=== PATIENT | male | born 1935 | race Caucasian/White ===

== ENCOUNTER 2019-02-26 21:33 | Inpatient (IN) ==
[2019-02-26] MEDS ORDERED: KETOROLAC TROMETHAMINE 15 MG/ML VIAL IV STA (21:54)
[2019-02-26] MEDS ORDERED: SODIUM CHLORIDE 0.9% 1000ML 250 ML IV ONE (21:54)
[2019-02-26] MEDS ORDERED: MoRPHine SULFATE 4 MG/ML 1 ML CARP\\VIAL IV STA (21:54)
[2019-02-26] MEDS ORDERED: ONDANSETRON INJ 2 MG/ML 2 ML VIAL IV STA (21:54)
[2019-02-26] MEDS ORDERED: SODIUM CHLORIDE 0.9% 500 ML IV SCH (22:00)
[2019-02-26 22:28] LABS: Hematocrit (blood only) 45.5 % (42-52); Hemoglobin 15.8 g/dL (14.0-18.0); Mean Corpuscular Hemoglobin 32.7 pg (25-34); Mean Corpuscular Hgb Conc 34.7 g/dL (32-36); Mean Corpuscular Volume 94.2 fL (80-100); Mean Platelet Volume 10.2 fL (7.4-10.4); Platelet Count 147 K/uL (130-400); RDW Coefficient of Variation 13.6 % (11.5-14.5); RDW Standard Deviation 46.6 fL (36.4-46.3); Red Blood Count 4.83 M/uL (4.7-6.1); White Blood Count 7.55 K/uL (4.8-10.8)
[2019-02-26 22:48] LABS: Albumin Level 4.2 gm/dl (3.4-5.0); BUN Creatinine Ratio 15.3 (10-20); Calcium 9.6 mg/dl (8.5-10.1); Creatinine Clr Calc Pharmacy 41.1 ml/min; Est GFR (African American) 55.3; Est GFR (Non-African American) 47.7; Potassium 3.9 mmol/L (3.5-5.1)
[2019-02-26] MEDS ORDERED: HYDROmorphone INJ 0.5 MG/0.5 ML SYR IV STA (22:50)
[2019-02-26 22:52] LABS: Albumin Globulin Ratio 1.1 (0.9-2); Bilirubin,Total 0.4 mg/dl (0.2-1); Globulin 3.7 gm/dl (2.5-4.0); Total Protein 7.9 gm/dl (6.4-8.2)
--- NOTE | 2019-02-26 22:53 | CT Scan Report ---
CT SCAN OF THE ABDOMEN AND PELVIS WITHOUT CONTRAST CLINICAL HISTORY: right flank pain COMPARISON STUDY: No previous studies for comparison. TECHNIQUE: CT scan of the abdomen and pelvis was performed from the lung bases to the proximal femurs . Images are reviewed in the axial, sagittal, and coronal planes. IV contrast was not administered fo r this examination. A dose lowering technique was utilized adhering to the principles of ALARA. CT DOSE: 331.62 mGy.cm FINDINGS: Lower chest: There is moderate respiratory motion artifact. There are no significant pleural effusion s. There are coronary artery calcifications. Liver: The unenhanced liver is normal in size, contour, and attenuation. There is no intrahepatic thao iary ductal dilatation. Gallbladder: Unremarkable. Spleen: Normal in size and attenuation. Pancreas: Unremarkable. Adrenal glands: Unremarkable. Kidneys: There is right-sided hydronephrosis and proximal hydroureter. There is an obstructing 5 mm p roximal right ureteral calculus Bowel: There are no transition zones indicate bowel obstruction. There are no findings to indicate [place] diverticulitis. There are no findings to indicate acute appendicitis. Peritoneum: There is no intraperitoneal free air or abdominal ascites. There is a small fat-containin g umbilical hernia Vasculature: The abdominal aorta is normal in course and caliber. Adenopathy: None. Pelvic viscera: The prostate is enlarged. Skeletal structures: No destructive osseous lesions are seen. The study is mildly degraded due to motion artifact. IMPRESSION: 1. No evidence of bowel obstruction. No evidence of free air 2. Obstructing 5 mm proximal right ureteral calculus at the L3-4 level. Electronically signed by: Wilton Carranza M.D. 02/26/2019 10:51 PM
[2019-02-26 23:41] LABS: Appearance Urine Clear (Clear); Bacteria Urine Automated Negative (Negative); Bilirubin Urine Negative (Negative); Blood Urine 1+ (Negative); Color Urine Yellow; Glucose Urine UA Negative (Negative); Ketones Urine 2+ (Negative); Leukocyte Esterase Urine Negative (Negative); Nitrite Urine Negative (Negative); Specific Gravity Urine 1.016 (1.000-1.030); Urobilinogen Urine Negative (Negative); pH Urine 7.5 (4.5-7.5)
[2019-02-26 23:46] LABS: Protein Urine Negative (Negative); Sulfosalicylic Acid Urine Negative (Negative)
[2019-02-27] MEDS ORDERED: PROMETHAZINE HCL 12.5 MG in SODIUM CHLORIDE 0.9% 50 ML IV STA (00:07)
[2019-02-27] MEDS ORDERED: PROMETHAZINE 12.5 MG/50.5 ML NSS IV ONE (00:19)
--- NOTE | 2019-02-27 00:26 | Emergency Department Note ---
History of Present Illness General Chief complaint: Kidney Stone Stated complaint: KIDNEY STONE History of Present Illness Maximum Pain Intensity: 10 This 83-year-old presents to the ER complaining of severe flank pain with nausea and vomiting Location: Right flank Quality: Achy Severity: Severe Duration: Past few days Timing: Started few days ago Context: Patient went to urgent care and was told he had a kidney stone and told to drink cranberry juice Modifying factors: better with nothing; worse with nothing Patient saw urology the other day, Dr. Carranza, and was placed on Flomax. Patient denies chest pain, dyspnea, fevers, testicular pain, penile pain, urinary symptoms. Home Medications Home Medications Medication Instructions Recorded Confirmed Type tamsulosin 0.4 mg capsule 0.4 mg PO DAILY #30 cap 02/17/19 02/26/19 Rx atorvastatin [Lipitor] 10 mg PO HS 02/26/19 02/26/19 History metoprolol succinate 25 mg PO DAILY 02/26/19 02/26/19 History aspirin [Aspir-Low] 81 mg PO DAILY 02/27/19 02/27/19 History Allergies Allergy/AdvReac Type Severity Reaction Status Date / Time No Known Allergies Allergy Verified 02/26/19 22:33 Past Med/Surg History Medical History Skin cancer Surgical History Previous back surgery Family History Brother Kidney disease Social History Preferred Language: Mexican Communication Ability: Effective Director [employer] Required: No Beliefs That Will Affect Care: None marital status: Current Living Situation: Spouse current occupational status: retired Feels Safe at Home: Yes Smoking Status: Former smoker Do You Dip or Chew Tobacco: No ; Hx Alcohol Use: Yes Alcohol type: beer Hx Substance Use: No Review of Systems A total of 10 systems reviewed and were otherwise negative Physical Exam Vital Signs Vital Signs - 24 hr 02/26/19 21:37 02/26/19 22:43 Temperature 36.5 C Temperature Source Oral Pulse Rate 94 H Pulse Rate [Left Finger] 86 Respiratory Rate 18 18 Blood Pressure 187/92 H Blood Pressure [Right Arm] 164/89 H Blood Pressure Mean 123 Blood Pressure Mean [Right Arm] 114 Blood Pressure Position [Right Arm] Sitting Pulse Oximetry 96 97 Oxygen Delivery Method Room Air Room Air Sepsis Recent Fever Within 48 Hours No Sepsis New/Unexplained Change in Mental Status No Sepsis Action Taken by Nursing No Action Required VITALS: Vitals are noted on the nurse's note and reviewed by myself. Vital signs stable. GENERAL: Pleasant male who appears in pain vomiting, in no acute distress, nondiaphoretic, well-developed well-nourished. SKIN: Capillary reflex less than 2 seconds. HEENT: Normocephalic. PERRLA. EOMI. Nares patent. Mucous membranes moist. Neck is supple without nuchal rigidity. HEART: Regular rate and rhythm LUNGS: Clear to auscultation bilaterally without wheezes, rales or rhonchi. No retractions or accessory muscle use. ABDOMEN: Positive bowel sounds x 4. Normal tympanic percussion. Soft, nontender, without masses or organomegaly. Umana sign negative. No guarding or rebound tenderness. MUSCULOSKELETAL: No gross musculoskeletal defects. NEURO: Patient was alert and oriented to person place and time. Normal sensation to light and sharp touch. No focal neurological deficits. Course Administered Medications Discontinued Medications Hydromorphone HCl (Dilaudid) 0.5 mg IV NOW STA Stop: 02/26/19 22:51 Last Admin: 02/26/19 22:54 Dose: 0.5 mg Documented by: [id number] Sodium Chloride (Nss 1000ml) 250 mls @ 999 mls/hr IV .Q16M ONE Stop: 02/26/19 22:09 Last Admin: 02/26/19 22:10 Dose: 999 mls/hr Documented by: [id number] Sodium Chloride (Nss) 500 mls @ 125 mls/hr IV .Q4H ILEANA Stop: 03/28/19 21:59 Last Admin: 02/26/19 22:10 Dose: 125 mls/hr Documented by: [id number] Promethazine HCl 12.5 mg/ (Sodium Chloride) 50.5 mls @ 202 mls/hr IV NOW STA Stop: 02/27/19 00:21 Last Admin: 02/27/19 00:24 Dose: 202 mls/hr Documented by: [id number] Ketorolac Tromethamine (Toradol) 10 mg IV ONE STA Stop: 02/26/19 21:55 Last Admin: 02/26/19 22:07 Dose: 10 mg Documented by: [id number] Morphine Sulfate (Morphine Sulfate) 4 mg IV NOW STA Stop: 02/26/19 21:55 Last Admin: 02/26/19 22:07 Dose: 4 mg Documented by: [id number] Ondansetron HCl (Zofran) 4 mg IV NOW STA Stop: 02/26/19 21:55 Last Admin: 02/26/19 22:07 Dose: 4 mg Documented by: [id number] Promethazine HCl (Phenergan) Confirm Administered Dose 12.5 mg IV .[facility] [employer] [facility] [employer] ONE Stop: 02/27/19 00:20 Last Admin: 02/27/19 00:25 Dose: Not Given Documented by: [id number] Medical Decision Making Medical Records Attestation: I reviewed the patient's medical records. Home Medications Current Medication List: was personally reviewed by me Laboratory Data Attestation: I reviewed the patient's lab results. Result diagrams: 02/26/19 22:15 02/26/19 22:15 Lab Results 02/26/19 02/26/19 02/26/19 Range/Units 22:15 22:15 23:30 WBC 7.55 (4.8-10.8) K/uL RBC 4.83 (4.7-6.1) M/uL Hgb 15.8 (14.0-18.0) g/dL Hct 45.5 (42-52) % MCV 94.2 (80-100) fL MCH 32.7 (25-34) pg MCHC 34.7 (32-36) g/dL RDW Std Deviation 46.6 H (36.4-46.3) fL RDW Coeff of Sherley 13.6 (11.5-14.5) % Plt Count 147 (130-400) K/uL MPV 10.2 (7.4-10.4) fL Sodium 140 (136-145) mmol/L Potassium 3.9 (3.5-5.1) mmol/L Chloride 106 (98-107) mmol/L Carbon Dioxide 25 (21-32) mmol/L Anion Gap 9.0 (3-11) BUN 21 H (7-18) mg/dl Creatinine 1.37 (0.6-1.4) mg/dl Est Cr Clr Drug Dosing 41.1 ml/min Est GFR ( Amer) 55.3 Est GFR (Non-Af Amer) 47.7 BUN/Creatinine Ratio 15.3 (10-20) Glucose 144 H (70-99) mg/dl Calcium 9.6 (8.5-10.1) mg/dl Total Bilirubin 0.4 (0.2-1) mg/dl AST 24 (15-37) U/L ALT 23 (12-78) U/L Alkaline Phosphatase 51 (45-117) U/L Total Protein 7.9 (6.4-8.2) gm/dl Albumin 4.2 (3.4-5.0) gm/dl Globulin 3.7 (2.5-4.0) gm/dl Albumin/Globulin Ratio 1.1 (0.9-2) Specimen Hemolysis Urine Color Yellow Urine Appearance Clear (Clear) Urine pH 7.5 (4.5-7.5) Ur Specific [place] 1.016 (1.000-1.030) Urine Protein Negative (Negative) Urine Glucose (UA) Negative (Negative) Urine Ketones 2+ H (Negative) Urine Blood 1+ H (Negative) Urine Nitrite Negative (Negative) Urine Bilirubin Negative (Negative) Urine Urobilinogen Negative (Negative) Ur Leukocyte Esterase Negative (Negative) Urine WBC (Auto) 1-5 (0-5) /hpf Urine RBC (Auto) 5-10 H (0-4) /hpf U Hyaline Cast (Auto) 1-5 (0-5) /lpf U Epithel Cells (Auto) 10-20 H (0-5) /lpf Urine Bacteria (Auto) Negative (Negative) Imaging Data Attestation: I personally reviewed and interpreted this imaging study as follows: Blood Pressure Blood Pressure Findings: Elevated blood pressure Blood Pressure Disposition: Referred to patients primary care provider [facility] Narrative Prior records/ancillary studies reviewed. Triage Nursing notes reviewed. Additional history obtained from the family. The patient's history was concerning for right flank pain. Differential diagnosis: Etiologies such as renal colic, appendicitis, diverticulitis, mesenteric ischemia, aortic pathology, infections, inflammatory bowel disease, PUD, biliary pathology, UTI, as well as others were entertained. Physical examination findings: As above. ER treatment provided: Toradol, morphine, Dilaudid, IV fluids, Zofran. Patient took Flomax already On reassessment the patient felt better. Diagnostic interpretation by me: The labs revealed stable H&H. Urinalysis revealed hematuria. There was no sign of UTI. Hyperglycemia without DKA Imaging studies: CT SCAN OF THE ABDOMEN AND PELVIS WITHOUT CONTRAST CLINICAL HISTORY: right flank pain COMPARISON STUDY: No previous studies for comparison. TECHNIQUE: CT scan of the abdomen and pelvis was performed from the lung bases to the proximal femurs. Images are reviewed in the axial, sagittal, and coronal planes. IV contrast was not administered for this examination. A dose lowering technique was utilized adhering to the principles of ALARA. CT DOSE: 331.62 mGy.cm FINDINGS: Lower chest: There is moderate respiratory motion artifact. There are no significant pleural effusions. There are coronary artery calcifications. Liver: The unenhanced liver is normal in size, contour, and attenuation. There is no intrahepatic biliary ductal dilatation. Gallbladder: Unremarkable. Spleen: Normal in size and attenuation. Pancreas: Unremarkable. Adrenal glands: Unremarkable. Kidneys: There is right-sided hydronephrosis and proximal hydroureter. There is an obstructing 5 mm proximal right ureteral calculus Bowel: There are no transition zones indicate bowel obstruction. There are no findings to indicate acute diverticulitis. There are no findings to indicate acute appendicitis. Peritoneum: There is no intraperitoneal free air or abdominal ascites. There is a small fat-containing umbilical hernia Vasculature: The abdominal aorta is normal in course and caliber. Adenopathy: None. Pelvic viscera: The prostate is enlarged. Skeletal structures: No destructive osseous lesions are seen. The study is mildly degraded due to motion artifact. IMPRESSION: 1. No evidence of bowel obstruction. No evidence of free air 2. Obstructing 5 mm proximal right ureteral calculus at the L3-4 level. Electronically signed by: Wilton Carranza M.D. 02/26/2019 10:51 PM Dictated: 02/26/19 2238 Transcribed: 02/26/19 2248 Consultation: A consultation was placed with Dr. Sanchez, hospitalist. The case was discussed and diagnostics were reviewed. The patient was evaluated in the ER for further treatment. It appears that the patient has isolated renal colic from a right sided stone. Patient was still severe amount of pain. Medicine was consulted. Patient is agreeable treatment plan of admission. No UTI. Patient has a large stone in the proximal right ureter. He follows with Dr. Carranza. By the evaluation outlined above emergent etiologies such as appendicitis, diverticulitis, mesenteric ischemia, aortic pathology, infections, inflammatory bowel disease, PUD, biliary pathology, UTI, as well as others were deemed relatively unlikely. The pt informed about the findings as listed above. All questions were answered and pleased with the treatment. Case reviewed with my attending The chart was completed utilizing [email or web address] Speech voice recognition software. Grammatical errors, random word insertions, pronoun errors, and incomplete sentences are an occassional consequence of this system due to software limitations, ambient noise, and hardware issues. Any formal questions or concerns about the content, text, or information contained within the body of this dictation should be directly addressed to the physician assistant men's soccer coach for clarification. Attending Attestation: I Sina Sinclair MD independently saw and evaluated this patient and agree with history and physical is otherwise documented by the physician assistant men's soccer coach. See their note for full details. Patient with 5mm kidney stone on CT with severe pain. Patient in no acute distress upon my evaluation with a normal respiratory effort and rate. States his nausea has resolved. Given his age and pain medicine contacted to evaluate for admission. Impression & Plan Renal colic on right side, Ureterolithiasis, Acute hyperglycemia, Intractable pain Discharge Plan Visit Data Chief Complaint: Kidney Stone Stated Complaint: KIDNEY STONE ED Provider: Sina Sinclair ED Midlevel Provider: Rea Woo Discharge Problem: Renal colic on right side, Ureterolithiasis, Acute hyperglycemia, Intractable pain Patient Disposition: Being Evaluated by Hospitalist Condition: Good Discharge Instructions Interventions: ED Discharge Assessment Last Done: 02/27/19 00:18
[2019-02-27] MEDS ORDERED: ONDANSETRON INJ 2 MG/ML 2 ML VIAL IV PRN (00:41)
[2019-02-27] MEDS: SODIUM CHLORIDE 0.9% 1000ML 1,000 ML IV SCH ×3 (01:08→17:28)
--- NOTE | 2019-02-27 01:25 | History and Physical Report ---
DATE OF ADMISSION: 02/26/2019 CHIEF COMPLAINT: Kidney stone. HISTORY OF PRESENT ILLNESS: This is an 83-year-old male with past medical history significant for hyperlipidemia, nonsustained ventricular tachycardia, internal hemorrhoids, atrial premature beats, paroxysmal supraventricular tachycardia, sinus arrhythmia, sinus bradycardia, history of diverticulitis of colon, generalized osteoarthritis, actinic keratosis, basal cell carcinoma right nasal tip, history of tobacco abuse, family history of premature CAD, presents with kidney stone. The patient about more than a week ago had right flank pain, went to urgent care. KUB showed 6 mm right kidney stone and saw urology on February 17 and started on tamsulosin and ibuprofen and followup appointments 2 weeks, plan for trial of passage of stone rather than surgery, and if no improvement, plan to schedule ESWL at that time in 2 weeks, but the patient came back today with severe pain in the right flank, 10/10 in severity and radiating to his groins, also some nausea, has some sweating, so he came to the ER. He was given Dilaudid and morphine and currently pain is under control and nausea is improved. Hemodynamically stable. No leukocytosis, afebrile. Resting comfortably. He has some mild fuzziness in the head and he has chronic runny nose, denies sore throat. Hard of hearing. No dysphagia, no chest pain, no shortness of breath, no cough, no fever, no chills. Currently, no abdominal pain. Currently has some nausea. No burning micturition, no hematuria. Normal bowel movements. No black stools or blood in the stools. No swelling in the legs. Sleeps okay. Appetite is good. Ambulates without any help. Lives with his . ALLERGIES: No known drug allergies. PAST MEDICAL HISTORY: As mentioned above. PAST SURGICAL HISTORY: Colonoscopy, removal of tonsillectomy, lumbosacral discectomy. MEDICATIONS: The patient is on aspirin 81 mg p.o. daily, Lipitor 10 mg p.o. daily, Toprol-XL 25 mg p.o. daily, Flomax 0.4 mg p.o. daily. FAMILY HISTORY: Significant for: Brother had CABG in 60s. Father at age of 78, history of emphysema. Mother had pancreatitis, at the age of 48. SOCIAL HISTORY: , quit smoking in 1976. Smoked half pack a day for 10 years. No alcohol. Occasional beer. No drug use. REVIEW OF SYSTEMS: As per HPI. Rest of review of symptoms is negative. PHYSICAL EXAMINATION: GENERAL: The patient is of moderate built, not in acute distress. VITAL SIGNS: Temperature 36.5, pulse 86, respiratory rate 18, blood pressure 164/80, oxygen 97% room air. HEENT: No pallor, no icterus. Pupils equal, round, reactive to light. NECK: No JVD, no neck masses, no carotid bruits. CARDIOVASCULAR: S1, S2 heard, regular rate and rhythm, no murmur, no gallop. RESPIRATORY SYSTEM: Normal AP diameter. No accessory muscle use. No wheezing, no crackles. ABDOMEN: Soft, bowel sounds present, nontender. No distention. CENTRAL NERVOUS SYSTEM: Cranial nerves II-XII grossly intact. Nonfocal. EXTREMITIES: No edema, no erythema. LABORATORY DATA: WBC 7.5, hemoglobin 15.8, hematocrit 45.5, platelets 147. Sodium 140, potassium 3.9, chloride 106, bicarbonate 25, BUN 21, creatinine 1.3, serum glucose 144, calcium 9.6, total bilirubin 0.4, AST 24, ALT 23, alkaline phosphatase 51. Urinalysis +2 ketones, +[address] abdomen and pelvis shows no evidence of bowel obstruction, no evidence of free air, obstructing 5 mm proximal right ureteral calculus at L3-L4 level. ASSESSMENT AND PLAN: This 83-year-old male presents with possible right kidney stone. 1. Right kidney stone, right renal colic. Failed outpatient conservative management with Flomax and pain control. Could not able to pass stone. Came with significant pain. We will keep him n.p.o., IV fluids, normal saline 125 mL per hour, IV morphine 3 mg q. 2 hours p.r.n. Continue Flomax, strain the urine and consult urology for possible cystoscopy. 2. History of hyperlipidemia. Continue statin. 3. History of nonsustained ventricular tachycardia, atrial premature beats, paroxysmal supraventricular tachycardia. Continue home Toprol-XL. 4. History of tobacco abuse. We will monitor for any wheezing. 5. Deep venous thrombosis prophylaxis, sequential compression devices for now. 6. Disposition: Monitor in the medical floor. Expect discharge home and follow with family doctor. Level 1 full code. MTDD
[2019-02-27 05:25] LABS: Basophils # (auto) 0.02 K/uL (0-0.2); Basophils % (auto) 0.3 %; Eosinophils # (auto) 0.02 K/uL (0-0.5); Eosinophils % (auto) 0.3 %; Hematocrit (blood only) 40.6 % (42-52); Hemoglobin 13.6 g/dL (14.0-18.0); Immature Granulocytes # (auto) 0.02 K/uL (0.00-0.02); Immature Granulocytes % (auto) 0.3 %; Lymphocytes # (auto) 0.67 K/uL (1.2-3.4); Lymphocytes % (auto) 8.9 %; Mean Corpuscular Hemoglobin 31.9 pg (25-34); Mean Corpuscular Hgb Conc 33.5 g/dL (32-36); Mean Corpuscular Volume 95.3 fL (80-100); Mean Platelet Volume 9.9 fL (7.4-10.4); Monocytes # (auto) 0.59 K/uL (0.11-0.59); Monocytes % (auto) 7.9 %; Neutrophils # (auto) 6.19 K/uL (1.4-6.5); Neutrophils % (auto) 82.3 %; Platelet Count 141 K/uL (130-400); RDW Coefficient of Variation 13.8 % (11.5-14.5); Red Blood Count 4.26 M/uL (4.7-6.1); White Blood Count 7.51 K/uL (4.8-10.8)
[2019-02-27 06:06] LABS: BUN Creatinine Ratio 20.5 (10-20); Calcium 8.2 mg/dl (8.5-10.1); Creatinine Clr Calc Pharmacy 57.1 ml/min; Est GFR (African American) 82.9; Est GFR (Non-African American) 71.5; Magnesium 1.9 mg/dl (1.8-2.4); Potassium 4.5 mmol/L (3.5-5.1)
[2019-02-27] MEDS: MoRPHine SULFATE 4 MG/ML 1 ML CARP\\VIAL IV PRN ×2 (09:09→15:27)
[2019-02-27] MEDS: TAMSULOSIN HCL 0.4 MG CAP PO SCH (09:10)
[2019-02-27] MEDS: METOPROLOL SUCC 25MG EXT REL TAB PO SCH (09:11)
--- NOTE | 2019-02-27 16:47 | Hospitalist Progress Note ---
Date of Service February 27, 2019 Assessment & Plan (1) Renal colic on right side: Secondary to right ureteric stone Has been getting intravenous fluid and intravenous pain medication No signs of infection Awaiting neurology evaluation (2) Ureterolithiasis: As above Has history of kidney stones Noted to be hypoglycemic on admission Blood sugar remains stable DVT prophylaxis SCDs CODE STATUS Full Subjective 02/27 The patient was seen and examined in medical floor He complains of pain in the right flank that goes down to right groin Denies any fever and/or chills Does not have any other symptoms Review of Systems Review of Systems: All systems reviewed and are unremarkable except as noted below Physical Exam Physical Exam: Lying in bed with minimal discomfort due to pain Constitutional: well developed, well nourished and + ill appearing Eyes: PERRL, conjunctivae normal, anicteric sclerae ENMT: external ear and nose normal, oropharynx normal Neck: trachea midline, no thyromegaly Respiratory: normal respiratory effort; no respiratory distress Aus cultation: lungs clear to auscultation bilaterally Cardiovascular: Rate/Rhythm: regular rate and regular rhythm Heart Sounds: no murmur Gastrointestinal (Abdomen): Inspection/Auscultation: + abdomen distended (Slightly distended) and normal bowel sounds Percussion/Palpation: + abdomen tender (Right loin and right renal angle) and abdomen soft Neurologic: moves all extremities; no focal motor deficits Results & Data Vital Signs (Past 12 Hours) Vital Signs Temp Pulse Resp BP Pulse Ox 02/27/19 14:57 36.7 C 62 16 107/63 93 02/27/19 07:29 36.8 C 74 18 110/64 95 Laboratory Results Short CBC 02/26/19 02/27/19 Range/Units 22:15 04:49 WBC 7.55 7.51 (4.8-10.8) K/uL Hgb 15.8 13.6 L (14.0-18.0) g/dL Hct 45.5 40.6 L (42-52) % Plt Count 147 141 (130-400) K/uL BMP 02/26/19 02/27/19 22:15 04:49 Sodium 140 143 Potassium 3.9 4.5 D Chloride 106 111 H Carbon Dioxide 25 28 BUN 21 H 20 H Creatinine 1.37 0.98 D Glucose 144 H 124 H Calcium 9.6 8.2 L Liver Function 02/26/19 Range/Units 22:15 Total Bilirubin 0.4 (0.2-1) mg/dl AST 24 (15-37) U/L ALT 23 (12-78) U/L Alkaline Phosphatase 51 (45-117) U/L Albumin 4.2 (3.4-5.0) gm/dl Urine 02/26/19 Range/Units 23:30 Urine Color Yellow Urine Appearance Clear (Clear) Urine pH 7.5 (4.5-7.5) Ur Specific [place] 1.016 (1.000-1.030) Urine Protein Negative (Negative) Urine Glucose (UA) Negative (Negative) Medications Administered Current Inpatient Medications Acetaminophen (Tylenol) 650 mg PO Q4H PRN PRN Reason: pain/fever Stop: 03/29/19 00:40 Atorvastatin Calcium (Lipitor) 10 mg PO HS ILEANA Stop: 03/29/19 20:59 Sodium Chloride (Nss 1000ml) 1,000 mls @ 125 mls/hr IV .Q8H ILEANA Stop: 03/29/19 00:40 Last Admin: 02/27/19 09:04 Dose: 125 mls/hr Documented by: Metoprolol Succinate (Toprol Xl) 25 mg PO DAILY ILEANA Stop: 03/29/19 08:59 Last Admin: 02/27/19 09:11 Dose: 25 mg Documented by: Morphine Sulfate (Morphine Sulfate) 3 mg IV Q3H PRN PRN Reason: Pain Stop: 03/13/19 00:40 Last Admin: 02/27/19 15:27 Dose: 3 mg Documented by: Ondansetron HCl (Zofran) 4 mg IV Q6H PRN PRN Reason: Nausea Stop: 03/29/19 00:40 Tamsulosin HCl (Flomax) 0.4 mg PO DAILY ILEANA Stop: 03/29/19 08:59 Last Admin: 02/27/19 09:10 Dose: 0.4 mg Documented by:
--- NOTE | 2019-02-27 18:48 | Urology Consultation ---
Date of Consultation February 27, 2019 Assessment & Plan (1) Ureterolithiasis: Patient with hydration throughout the day. Has yet to pass stone. Patient is comfortable currently. Medications are currently controlling pain. No major relief of pain. Rare occasional episodes of severe pain mostly nagging back pain. Has improved over time without major episode of severe nausea, vomiting, fever, intractable pain, or other concerning features. Patient is currently n.p.o. Discussed options including stent and stone treatment. Discussed other options for management. We will plan to treat patient with hydration and increase fluid N.p.o. at midnight. Will reassess plan for possible intervention tomorrow morning at some point if patient still not passing. Patient complicated medical history is reviewed and interpreted by myself. All imaging was reviewed interpreted by myself please see full reports. History of Present Illness Attending Physician: Nia Sheffield MD History of Present Illness Patient mated with severe renal colic going in waves with lower pain and pelvic discomfort. Patient was at a his camp and suddenly developed more severe pain. Became unbearable. Was admitted overnight. Underwent hydration through the day. Has yet to pass stone. Has been dealing with the stone for approximately [address] Carranza with our group in the past. Pain can be severe comes in waves. Can be occasionally with nausea. No other major changes. No major bleeding. Allergies Allergy/AdvReac Type Severity Reaction Status Date / Time No Known Allergies Allergy Verified 02/26/19 22:33 Home Medications Home Medications Medication Instructions Recorded Confirmed Type tamsulosin 0.4 mg capsule 0.4 mg PO DAILY #30 cap 02/17/19 02/26/19 Rx atorvastatin [Lipitor] 10 mg PO HS 02/26/19 02/26/19 History metoprolol succinate 25 mg PO DAILY 02/26/19 02/26/19 History aspirin [Aspir-Low] 81 mg PO DAILY 02/27/19 02/27/19 History Patient History Medical History Skin cancer Surgical History Previous back surgery Family History Brother Kidney disease Social History Preferred Language: [place]an Communication Ability: Effective Traffic Personnel Supervisor Required: No Beliefs That Will Affect Care: None marital status: Current Living Situation: Spouse current occupational status: retired Feels Safe at Home: Yes Smoking Status: Former smoker Do You Dip or Chew Tobacco: No ; Hx Alcohol Use: Yes Alcohol type: beer Hx Substance Use: No Review of Systems Review of Systems: All systems reviewed & are unremarkable except as noted in HPI & below Physical Exam Physical Exam: General: Alert and oriented x 3 in no acute distress. Patient is well nourished and well kept. HEENT: Normocephalic Atraumatic. Inspection normal. Cranial Nerves 2-12 Grossly intact. Nares are clear. Neck is supple. Normal inspection of face. Normal inspection of neck. Neurologic: No deficits on inspection. Baseline for motor function and sensory. Psychologic: Normal affect. Respiratory: Nonlabored. No use of accessory muscles. No tachypnea or dyspnea. Cardiovascular: No tachycardia Skin: [place] and Dry. No rashes or visible lesions. Extremities: Moving without issues. No motor deficits on inspection Lymphatics: No edema Abdomen: Soft Non-distended. No acites. No rebound or guarding. : Mild CVA tenderness Results & Data Vital Signs (Past 12 Hours) Vital Signs Temp Pulse Resp BP Pulse Ox 02/27/19 14:57 36.7 C 62 16 107/63 93 02/27/19 07:29 36.8 C 74 18 110/64 95 PG Care Time/CCT Total # of Minutes Spent Total Time Spent with Patient: Total time spent is greater than 50% in coordination of care (as documented) at patient's floor/unit and/or counseling patient:
[2019-02-27] MEDS: ATORVASTATIN 10 MG TAB PO SCH (20:34)
[2019-02-27] MEDS: ACETAMINOPHEN 325 MG TAB PO PRN (22:23)
[2019-02-28] MEDS: SODIUM CHLORIDE 0.9% 1000ML 1,000 ML IV SCH ×4 (02:05→23:35)
[2019-02-28 05:36] LABS: Basophils # (auto) 0.02 K/uL (0-0.2); Basophils % (auto) 0.4 %; Hematocrit (blood only) 38.8 % (42-52); Hemoglobin 13.1 g/dL (14.0-18.0); Immature Granulocytes # (auto) 0.01 K/uL (0.00-0.02); Immature Granulocytes % (auto) 0.2 %; Lymphocytes # (auto) 1.55 K/uL (1.2-3.4); Lymphocytes % (auto) 30.8 %; Mean Corpuscular Hemoglobin 32.4 pg (25-34); Mean Corpuscular Hgb Conc 33.8 g/dL (32-36); Mean Platelet Volume 10.1 fL (7.4-10.4); Monocytes # (auto) 0.55 K/uL (0.11-0.59); Monocytes % (auto) 10.9 %; Neutrophils # (auto) 2.61 K/uL (1.4-6.5); Neutrophils % (auto) 51.7 %; Platelet Count 121 K/uL (130-400); RDW Coefficient of Variation 14.3 % (11.5-14.5); RDW Standard Deviation 50.2 fL (36.4-46.3); Red Blood Count 4.04 M/uL (4.7-6.1); White Blood Count 5.04 K/uL (4.8-10.8)
[2019-02-28 06:04] LABS: Calcium 7.8 mg/dl (8.5-10.1); Creatinine Clr Calc Pharmacy 44.8 ml/min; Est GFR (African American) 61.8; Est GFR (Non-African American) 53.3; Potassium 4.1 mmol/L (3.5-5.1)
[2019-02-28] MEDS: METOPROLOL SUCC 25MG EXT REL TAB PO SCH (07:48)
[2019-02-28] MEDS: TAMSULOSIN HCL 0.4 MG CAP PO SCH (07:49)
--- NOTE | 2019-02-28 12:06 | XRay Report ---
XR KUB/Abdomen 1 view CLINICAL HISTORY: Nephrolithiasis COMPARISON STUDY: CT scan dated 02/26/2019 FINDINGS: The renal shadows are largely obscured by overlying bowel gas and fecal material. There is a 7 mm proximal right ureteral calculus located just inferior to the right L3 transverse process. The re is a nonobstructive bowel gas pattern. IMPRESSION: 1. Nonobstructive bowel gas pattern 2. 7 mm proximal right ureteral calculus Electronically signed by: Wilton Carranza M.D. 02/28/2019 12:05 PM
[2019-02-28] MEDS ORDERED: fentaNYL citrate 100 MCG/2 ML VIAL ONE (13:07)
--- NOTE | 2019-02-28 13:07 | Urology Progress Note ---
Date of Service February 28, 2019 Assessment & Plan (1) Renal colic on right side: Risks and benefits discussed at length for procedure. These include bleeding, infection, injury to surrounding tissues or organs, and risks associated with anesthesia. Patient states understanding and agrees to proceed. Will sign consent and schedule. We will set up for cystoscopy and right stent placement. (2) Kidney stones: Subjective Patient with sudden onset of severe pain. Was admitted due to obstructing stone. Continues to have pain intermittently. Has been bothersome. Had not shown any signs of stone passing. Has not had any bleeding or other issues. Continues to have intermittent pain. Has considered options and wants to proceed with stent for right-sided stone. Review of Systems Review of Systems: All systems reviewed & are unremarkable except as noted in HPI & below Physical Exam Physical Exam: General: Alert in no acute distress. HEENT: Normocephalic Atraumatic. Inspection normal. Cranial Nerves 2-12 Grossly intact. Normal inspection of face. Normal inspection of neck. Psychologic: Normal affect. Respiratory: Nonlabored. No use of accessory muscles. No tachypnea or dyspnea. Cardiovascular: No tachycardia Skin: [place] and Dry. No rashes or visible lesions. Extremities/Lymphatics: No edema Abdomen: Soft Non-distended. No rebound or guarding. Results & Data Vital Signs (Past 12 Hours) Vital Signs Temp Pulse Resp BP Pulse Ox 02/28/19 07:00 37.0 C 57 L 16 145/76 H 93 PG Care Time/CCT Total # of Minutes Spent Total Time Spent with Patient: Total time spent is greater than 50% in coordination of care (as documented) at patient's floor/unit and/or counseling patient:
[2019-02-28] MEDS ORDERED: LIDOCAINE HCL 2% 2 ML VIAL/AMP(20MG/ML) INFIL ONE (13:08)
[2019-02-28] MEDS ORDERED: PROPOFOL IV EMULSION 10 MG/ML 20 ML VIAL IV ONE (13:08)
[2019-02-28] MEDS ORDERED: ONDANSETRON INJ 2 MG/ML 2 ML VIAL ONE (13:09)
--- NOTE | 2019-02-28 13:09 | Hospitalist Progress Note ---
Date of Service February 28, 2019 Assessment & Plan (1) Renal colic on right side: Secondary to right ureteric stone Has been getting intravenous fluid and intravenous pain medication No signs of infection Awaiting neurology evaluation-appreciate input and recommendation Likely to have cystoscopy with the ureteral stent placement today 02/28 (2) Ureterolithiasis: As above Has history of kidney stones Noted to be hypoglycemic on admission Blood sugar remains stable DVT prophylaxis SCDs CODE STATUS Full Subjective 02/27 The patient was seen and examined in medical floor He complains of pain in the right flank that goes down to right groin Denies any fever and/or chills Does not have any other symptoms 02/28 The patient was seen and examined in medical floor His pain has been better and shifted downwards Denies any fever and/or chills Awaiting for urological procedure this afternoon Review of Systems Review of Systems: All systems reviewed and are unremarkable except as noted below Physical Exam Constitutional: well developed, well nourished and + ill appearing Eyes: PERRL, conjunctivae normal, anicteric sclerae ENMT: external ear and nose normal, oropharynx normal Neck: trachea midline, no thyromegaly Respiratory: normal respiratory effort; no respiratory distress Auscultation: lungs clear to auscultation bilaterally Cardiovascular: Rate/Rhythm: regular rate and regular rhythm Heart Sounds: no murmur Gastrointestinal (Abdomen): Inspection/Auscultation: + abdomen distended (Slightly distended) and normal bowel sounds Percussion/Palpation: abdomen soft Musculoskeletal: No acute arthritis in any joints Neurologic: moves all extremities; no focal motor deficits Results & Data Vital Signs (Past 12 Hours) Vital Signs Temp Pulse Resp BP Pulse Ox 02/28/19 07:00 37.0 C 57 L 16 145/76 H 93 Laboratory Results Short CBC 02/28/19 Range/Units 04:58 WBC 5.04 (4.8-10.8) K/uL Hgb 13.1 L (14.0-18.0) g/dL Hct 38.8 L (42-52) % Plt Count 121 L (130-400) K/uL [facility] 02/28/19 04:58 Sodium 140 Potassium 4.1 Chloride 112 H Carbon Dioxide 24 BUN 21 H Creatinine 1.25 Glucose 94 Calcium 7.8 L Medications Administered Current Inpatient Medications Acetaminophen (Tylenol) 650 mg PO Q4H PRN PRN Reason: pain/fever Stop: 03/29/19 00:40 Last Admin: 02/27/19 22:23 Dose: 650 mg Documented by: Atorvastatin Calcium (Lipitor) 10 mg PO HS ILEANA Stop: 03/29/19 20:59 Last Admin: 02/27/19 20:34 Dose: 10 mg Documented by: Sodium Chloride (Nss 1000ml) 1,000 mls @ 125 mls/hr IV .Q8H ILEANA Stop: 03/29/19 00:40 Last Admin: 02/28/19 08:55 Dose: 125 mls/hr Documented by: Metoprolol Succinate (Toprol Xl) 25 mg PO DAILY ILEANA Stop: 03/29/19 08:59 Last Admin: 02/28/19 07:48 Dose: Not Given Documented by: Morphine Sulfate (Morphine Sulfate) 3 mg IV Q3H PRN PRN Reason: Pain Stop: 03/13/19 00:40 Last Admin: 02/27/19 15:27 Dose: 3 mg Documented by: Ondansetron HCl (Zofran) 4 mg IV Q6H PRN PRN Reason: Nausea Stop: 03/29/19 00:40 Tamsulosin HCl (Flomax) 0.4 mg PO DAILY ILEANA Stop: 03/29/19 08:59 Last Admin: 02/28/19 07:49 Dose: 0.4 mg Documented by:
--- NOTE | 2019-02-28 13:16 | Anesthesiology Consultation ---
Date of Service February 28, 2019 Assessment & Plan (1) Encounter for pre-operative examination: Chart Review Chart Review: Acceptable Risk for Surgery and Patient NOT seen in Pre Admission Testing Consults Requested none ASA ASA2 Proposed Anesthesia Anesthesia Type: MAC Risk / Benefits Reviewed With: PT / POA / Parent / Guardian, Accepts Plan and Informed Consent Obtained History Surgery Operation Date: 02/28/19 13:00 Proposed Procedures p Ureteral Stent Insertion/Removal(Right) - Nguyễn Lee, Height/Weight Height: 5 ft 6 in Weight: 78.1 kg Allergies Allergy/AdvReac Type Severity Reaction Status Date / Time No Known Allergies Allergy Verified 02/26/19 22:33 Medications Home Medications Medication Instructions Recorded Confirmed Last Taken tamsulosin 0.4 mg capsule 0.4 mg PO DAILY #30 cap 02/17/19 02/26/19 02/26/19 atorvastatin [Lipitor] 10 mg PO HS 02/26/19 02/26/19 Unknown metoprolol succinate 25 mg PO DAILY 02/26/19 02/26/19 Unknown aspirin [Aspir-Low] 81 mg PO DAILY 02/27/19 02/27/19 Unknown Active Medications Generic Name Dose Route Start Last Admin Trade Name Freq PRN Reason Stop Dose Admin Acetaminophen 650 mg 02/27/19 00:41 02/27/19 22:23 Tylenol PO 03/29/19 00:40 650 mg Q4H PRN Administration pain/fever Atorvastatin Calcium 10 mg 02/27/19 21:00 02/27/19 20:34 Lipitor PO 03/29/19 20:59 10 mg HS ILEANA Administration Sodium Chloride 1,000 mls @ 125 mls/hr 02/27/19 00:41 02/28/19 08:55 Nss 1000ml IV 03/29/19 00:40 125 mls/hr .Q8H ILEANA Administration Metoprolol Succinate 25 mg 02/27/19 09:00 02/28/19 07:48 Toprol Xl PO 03/29/19 08:59 Not Given DAILY ILEANA Morphine Sulfate 3 mg 02/27/19 00:41 02/27/19 15:27 Morphine Sulfate IV 03/13/19 00:40 3 mg Q3H PRN Administration Pain Tamsulosin HCl 0.4 mg 02/27/19 09:00 02/28/19 07:49 Flomax PO 03/29/19 08:59 0.4 mg DAILY ILEANA Administration NPO Date Last Intake of Fluids: 02/27/19 Time Last Intake of Fluids: 23:59 Date Last Intake of Solids: 02/27/19 Time Last Intake of Solids: 23:59 Past Medical History Medical History Skin cancer Exercise / Class Metabolic Activity II 4-5 Yardwork/Stairs/Walk up hill (shovels snow) Past Family History Family History Brother Kidney disease Past Surgical History Surgical History Previous back surgery Past Anesthesia History No Hx of Anesthesia Complications and No Family Hx of Anesthesia Complications History of PONV No Hx of PONV and No Hx of Motion Sickness Social History Smoking Status: Former smoker Do You Dip or Chew Tobacco: No Hx Alcohol Use: Yes Alcohol type: beer alcohol intake frequency: 0-2 drinks per day Alcohol Intake Frequency Comment: 1 beer a night at most Hx Substance Use: No Physical Exam Vital Signs Last Vital Signs Temp 37.0 C 02/28/19 07:00 Pulse 57 L 02/28/19 07:00 Resp 16 02/28/19 07:00 BP 145/76 H 02/28/19 07:00 Pulse Ox 93 02/28/19 07:00 ENMT Mouth: no dentition abnormality Thyromental Distance: > or= 3.5 Finger Breadths Mallampati Class: II Neck normal visual inspection Respiratory normal respiratory effort Auscultation: lungs clear to auscultation bilaterally Cardiovascular Rate/Rhythm: regular rate and regular rhythm Psychiatric Orientation: alert Testing Laboratory Results 02/28/19 04:58 02/28/19 04:58 Urine Color Yellow 02/26/19 23:30 Urine Appearance Clear (Clear) 02/26/19 23:30 Urine pH 7.5 (4.5-7.5) 02/26/19 23:30 Ur Specific [place] 1.016 (1.000-1.030) 02/26/19 23:30 Urine Protein Negative (Negative) 02/26/19 23:30 Urine Glucose (UA) Negative (Negative) 02/26/19 23:30 Urine Ketones 2+ (Negative) H 02/26/19 23:30 Urine Nitrite Negative (Negative) 02/26/19 23:30 Ur Leukocyte Esterase Negative (Negative) 02/26/19 23:30 Urine WBC (Auto) 1-5 /hpf (0-5) 02/26/19 23:30 Urine RBC (Auto) 5-10 /hpf (0-4) H 02/26/19 23:30 U Hyaline Cast (Auto) 1-5 /lpf (0-5) 02/26/19 23:30 U Epithel Cells (Auto) 10-20 /lpf (0-5) H 02/26/19 23:30 Urine Bacteria (Auto) Negative (Negative) 02/26/19 23:30 Electrocardiogram Date: 02/27/19 Findings: + NSR @ atrial ectopy
[2019-02-28] MEDS ORDERED: IOTHALAMATE MEGLUMINE II 17.2% 250 ML VIAL ONE (13:21)
[2019-02-28] MEDS ORDERED: CEFAZOLIN 250 MG/ML 1 GM VIAL ONE (13:22)
[2019-02-28] MEDS ORDERED: SODIUM CHLORIDE 0.9% INJ 10 ML VIAL ONE (13:23)
[2019-02-28] MEDS ORDERED: CEFAZOLIN 2000MG 2,000 MG/15 ML SYR IV ONE ×2 (13:32→13:44)
--- NOTE | 2019-02-28 13:38 | Operative Report ---
PG Post Operative Report Pre & Post Diagnosis Operation Date: 02/28/19 13:00 Pre-Op Diagnosis: KIDNEY STONE Post-Op Diagnosis: KIDNEY STONE I identified the patient and participated in the time-out.: Yes Procedure Operation Date: 02/28/19 13:00 Actual Procedures p Cystoscopy Right Retrograde Pyelogram and Ureteral Stent Insertion(Right) - Nguyễn Lee DO Surgeon Nguyễn Lee, II, DO Goat Farmer None Estimated Blood Loss 1 Findings Consistent with Post-Op Diagnosis Stent placed in good position. Specimens None Drains 6 Fr Multilength Anesthesia Type MAC Complications none Disposition Disposition: Recovery Room Indications Patient with obstruction. Risks and benefits discussed at length. Description of Procedure Patient was consented and brought back to the operating room. Patient was placed under anesthesia in the supine position and moved to the dorsal lithotomy position. Patient was prepped and draped in the regular sterile fashion. A time out was completed. A 30degree Cystoscope was placed into the bladder and the entire bladder was examined. The UO's were identified. The UO was cannulized with a catheter and a retrograde pyelogram was completed. A wire was then placed. With the wire in place, a 6 Fr Double J stent was placed. It was confirmed with fluoroscopy. With the stent in place, the bladder was emptied. The scope was removed. The patient was cleaned, aroused from anesthesia, and transferred to the pacu in stable condition having tolerated the procedure well with no complications. I was present and participated in all aspects of the procedure. The patient will be monitored in the PACU until transferred. I attest to the content of the Intraoperative Record and any orders documented therein. Any exceptions are noted below.
--- NOTE | 2019-02-28 14:03 | Fluoroscopy Report ---
FL retrograde includes kub CLINICAL HISTORY: Proximal right ureteral calculus COMPARISON STUDY: KUB dated 02/28/2019 FLUOROSCOPY TIME: 26 seconds. NUMBER OF FLUOROSCOPIC IMAGES: 4 FINDINGS: 3 intraprocedural fluoroscopic spot images are provided for interpretation. The right urete r was catheterized and retrograde fashion. On images #1 and 2, the catheter was positioned within the right renal pelvis. Contrast reveals mild dilatation the right renal collecting system. Images #3 an d 4 demonstrate placement of a double pigtail right-sided nephroureteral stent IMPRESSION: Retrograde study with placement of a double pigtail right-sided nephroureteral stent Electronically signed by: Wilton Carranza M.D. 02/28/2019 2:01 PM
--- NOTE | 2019-02-28 14:21 | Anesthesiology Progress Note ---
Date of Service February 28, 2019 Anesthesia Post Procedure Vital Signs Vital Signs: Temp Pulse Resp BP Pulse Ox 02/28/19 14:05 74 16 170/84 H 98 02/28/19 13:55 73 16 155/83 H 98 02/28/19 13:45 36.3 C L 70 16 149/84 H 95 02/28/19 07:00 37.0 C 57 L 16 145/76 H 93 02/27/19 23:19 37.1 C 60 18 107/68 90 02/27/19 14:57 36.7 C 62 16 107/63 93 Pain Intensity Right Flank: Pain Intensity: 3 Transfer of Care Handoff Completed per policy Notes Mental Status: alert / awake / arousable Patient Amnestic to Procedure: Yes Nausea / Vomiting: adequately controlled Pain: adequately controlled Airway Patency, RR, SpO2: stable & adequate BP & HR: stable & adequate Hydration State: stable & adequate Anesthetic Complications: no major complications apparent
[2019-02-28] MEDS: ACETAMINOPHEN 325 MG TAB PO PRN ×2 (17:19→21:18)
[2019-02-28] MEDS: ATORVASTATIN 10 MG TAB PO SCH (21:19)
[2019-03-01] MEDS: MoRPHine SULFATE 4 MG/ML 1 ML CARP\\VIAL IV PRN (02:49)
[2019-03-01] MEDS: SODIUM CHLORIDE 0.9% 1000ML 1,000 ML IV SCH (07:41)
[2019-03-01] MEDS: ACETAMINOPHEN 325 MG TAB PO PRN ×2 (07:42→13:17)
[2019-03-01] MEDS: METOPROLOL SUCC 25MG EXT REL TAB PO SCH (07:43)
[2019-03-01] MEDS: TAMSULOSIN HCL 0.4 MG CAP PO SCH (07:43)
--- NOTE | 2019-03-01 10:00 | Urology Progress Note ---
Date of Service March 01, 2019 Assessment & Plan (1) Ureterolithiasis: (2) Renal colic on right side: 82yo M s/p POD # 1 cysto, right ureteral stent placement. Doing well with expected stent irritation. Discussed plan moving forward, pt is candidate for ESWL this Friday. Good stone visibility on KUB. He is not currently on blood thinners, very sparingly takes baby Aspirin. Does not feel he has taken it in a few weeks. He understands to stay off. Okay to discharge home with pain control, pyridium from our standpoint. Pt lives in [facility] [place], plan to have pt report to [address] [place] [address] to update H&P and sign paperwork. Dr. Sheffield and nursing made aware. Thank you for allowing us to participate in the acute care of Mr. Meeks. Please reconsult us with additional questions, concerns or changes in patient status. Subjective 83yo M POD #1 s/p cysto,right ureteral stent placement secondary to 5mm prox right ureteral stone, moderate hydro. No renal stones. Granddaughter, whom is [facility] RN, at bedside. Pt doing okay, typical stent irritation noted. Dysuria and reflux pain with urination is most bothersome. Hematuria is lightening up per patient report. Denies n/v/f/c. Tolerating PO. Review of Systems Review of Systems: All systems reviewed & are unremarkable except as noted in HPI & below Physical Exam Physical Exam: A&Ox3 RRR abd soft, nontender Results & Data Vital Signs (Past 12 Hours) Vital Signs Temp Pulse Resp BP Pulse Ox 03/01/19 07:04 36.8 C 69 16 153/67 H 91 03/01/19 03:00 37.2 C 78 16 157/78 H 91 02/28/19 23:10 37.1 C 71 16 142/69 H 92 PG Care Time/CCT Total # of Minutes Spent Total Time Spent with Patient: Total time spent is greater than 50% in coordination of care (as documented) at patient's floor/unit and/or counseling patient:
[2019-03-01] MEDS ORDERED: BISACODYL 10 MG SUPP PR STA (12:16)
--- NOTE | 2019-03-01 12:16 | Hospitalist Progress Note ---
Date of Service March 01, 2019 Assessment & Plan (1) Renal colic on right side: Secondary to right ureteric stone Has been getting intravenous fluid and intravenous pain medication No signs of infection Awaiting neurology evaluation-appreciate input and recommendation Likely to have cystoscopy with the ureteral stent placement today 02/28 Status post cystoscopy with right ureteral stent placement Appreciate urology input and recommended Will be discharged home this afternoon (2) Ureterolithiasis: As above Has history of kidney stones Noted to be hypoglycemic on admission Blood sugar remains stable DVT prophylaxis SCDs CODE STATUS Full Subjective 02/27 The patient was seen and examined in medical floor He complains of pain in the right flank that goes down to right groin Denies any fever and/or chills Does not have any other symptoms 02/28 The patient was seen and examined in medical floor His pain has been better and shifted downwards Denies any fever and/or chills Awaiting for urological procedure this afternoon 03/01 The patient was seen and examined in medical floor He is a status post cystoscopy and right ureteral stent placement on 02/28 Has been feeling a lot better He was to go home Review of Systems Review of Systems: All systems reviewed and are unremarkable except as noted below Physical Exam Physical Exam: Lying in bed comfortably Constitutional: well developed and well nourished Eyes: PERRL, conjunctivae normal, anicteric sclerae ENMT: external ear and nose normal, oropharynx normal Neck: trachea midline, no thyromegaly Respiratory: normal respiratory effort; no respiratory distress Auscultation: lungs clear to auscultation bilaterally Cardiovascular: Rate/Rhythm: regular rate and regular rhythm Heart Sounds: no murmur Gastrointestinal (Abdomen): Inspection/Auscultation: + abdomen distended (Slightly distended) and normal bowel sounds Percussion/Palpation: abdomen soft Musculoskeletal: No acute arthritis in any joints Neurologic: moves all extremities; no focal motor deficits Results & Data Vital Signs (Past 12 Hours) Vital Signs Temp Pulse Resp BP Pulse Ox 03/01/19 07:04 36.8 C 69 16 153/67 H 91 03/01/19 03:00 37.2 C 78 16 157/78 H 91 Medications Administered Current Inpatient Medications Acetaminophen (Tylenol) 650 mg PO Q4H PRN PRN Reason: pain/fever Stop: 03/29/19 00:40 Last Admin: 03/01/19 07:42 Dose: 650 mg Documented by: Atorvastatin Calcium (Lipitor) 10 mg PO HS ILEANA Stop: 03/29/19 20:59 Last Admin: 02/28/19 21:19 Dose: 10 mg Documented by: Sodium Chloride (Nss 1000ml) 1,000 mls @ 125 mls/hr IV .Q8H ILEANA Stop: 03/29/19 00:40 Last Admin: 03/01/19 07:41 Dose: 125 mls/hr Documented by: Metoprolol Succinate (Toprol Xl) 25 mg PO DAILY ILEANA Stop: 03/29/19 08:59 Last Admin: 03/01/19 07:43 Dose: 25 mg Documented by: Morphine Sulfate (Morphine Sulfate) 3 mg IV Q3H PRN PRN Reason: Pain Stop: 03/13/19 00:40 Last Admin: 03/01/19 02:49 Dose: 3 mg Documented by: Ondansetron HCl (Zofran) 4 mg IV Q6H PRN PRN Reason: Nausea Stop: 03/29/19 00:40 Tamsulosin HCl (Flomax) 0.4 mg PO DAILY ILEANA Stop: 03/29/19 08:59 Last Admin: 03/01/19 07:43 Dose: 0.4 mg Documented by:
--- NOTE | 2019-03-01 14:27 | XRay Report ---
TWO VIEW CHEST CLINICAL HISTORY: Preoperative examination. FINDINGS: PA and lateral chest radiographs are obtained. Correlation is made with abdominal CT dated 02/26/2019. The heart is enlarged noting atherosclerotic calcification of the thoracic aorta. There i s mild pulmonary vascular congestion. Emphysematous change is noted. Small pleural effusions are iden tified with bibasilar consolidation. There is no pneumothorax. The skeletal structures are osteopenic . The bony thorax appears intact. IMPRESSION: 1. Cardiomegaly and emphysema. There is mild pulmonary vascular congestion. 2. There are small pleural effusions with bibasilar consolidation. This likely represents atelectasis , and this is new from 02/26/[address] Electronically signed by: Dany Cain M.D. 03/01/2019 2:26 PM
--- NOTE | 2019-03-01 18:37 | Discharge Summary ---
Date of Service March 01, 2019 Admission HPI Per Admitting Provider HISTORY OF PRESENT ILLNESS: This is an 83-year-old male with past medical history significant for hyperlipidemia, nonsustained ventricular tachycardia, internal hemorrhoids, atrial premature beats, paroxysmal supraventricular tachycardia, sinus arrhythmia, sinus bradycardia, history of diverticulitis of colon, generalized osteoarthritis, actinic keratosis, basal cell carcinoma right nasal tip, history of tobacco abuse, family history of premature CAD, presents with kidney stone. The patient about more than a week ago had right flank pain, went to urgent care. KUB showed 6 mm right kidney stone and saw urology on February 17 and started on tamsulosin and ibuprofen and followup appointments 2 weeks, plan for trial of passage of stone rather than surgery, and if no improvement, plan to schedule ESWL at that time in 2 weeks, but the patient came back today with severe pain in the right flank, 10/10 in severity and radiating to his groins, also some nausea, has some sweating, so he came to the ER. He was given Dilaudid and morphine and currently pain is under control and nausea is improved. Hemodynamically stable. No leukocytosis, afebrile. Resting comfortably. He has some mild fuzziness in the head and he has chronic runny nose, denies sore throat. Hard of hearing. No dysphagia, no chest pain, no shortness of breath, no cough, no fever, no chills. Currently, no abdominal pain. Currently has some nausea. No burning micturition, no hematuria. Normal bowel movements. No black stools or blood in the stools. No swelling in the legs. Sleeps okay. Appetite is good. Ambulates without any help. Lives with his . Admission Exam Per Admitting Provider GENERAL: The patient is of moderate built, not in acute distress. VITAL SIGNS: Temperature 36.5, pulse 86, respiratory rate 18, blood pressure 164/80, oxygen 97% room air. HEENT: No pallor, no icterus. Pupils equal, round, reactive to light. NECK: No JVD, no neck masses, no carotid bruits. CARDIOVASCULAR: S1, S2 heard, regular rate and rhythm, no murmur, no gallop. RESPIRATORY SYSTEM: Normal AP diameter. No accessory muscle use. No wheezing, no crackles. ABDOMEN: Soft, bowel sounds present, nontender. No distention. CENTRAL NERVOUS SYSTEM: Cranial nerves II-XII grossly intact. Nonfocal. EXTREMITIES: No edema, no erythema. Principal Diagnosis Right ureteric stone status post cystoscopy and stent placement Discharge Exam Constitutional well developed and well nourished Eyes PERRL, conjunctivae normal, anicteric sclerae ENMT external ear and nose normal, oropharynx normal Neck trachea midline, no thyromegaly Respiratory normal respiratory effort; no respiratory distress Auscultation: lungs clear to auscultation bilaterally Cardiovascular Rate/Rhythm: regular rate and regular rhythm Heart Sounds: no murmur Gastrointestinal (Abdomen) Inspection/Auscultation: + abdomen distended (Slightly distended) and normal bowel sounds Percussion/Palpation: abdomen soft Neurologic moves all extremities; no focal motor deficits Discharge Data Allergies Allergy/AdvReac Type Severity Reaction Status Date / Time No Known Allergies Allergy Verified 02/26/19 22:33 Consultations 02/26/19 23:26 ED Decision to Admit Stat 02/27/19 08:00 Consult Urology Routine Procedures Performed Operation Date: 02/28/19 13:00 Actual Procedures p Cystoscopy Right Ureteral Stent Insertion(Right) - Nguyễn Lee, Ordered Studies 02/26/19 21:55 CT abd pelvis wo con Stat 02/28/19 12:00 FL retrograde includes kub Routine Hospital Course (1) Renal colic on right side: Secondary to right ureteric stone Has been getting intravenous fluid and intravenous pain medication No signs of infection Awaiting neurology evaluation-appreciate input and recommendation Likely to have cystoscopy with the ureteral stent placement today 12 Status post cystoscopy with right ureteral stent placement / Appreciate urology input and recommended Will be discharged home this afternoon (2) Ureterolithiasis: As above Has history of kidney stones Noted to be hypoglycemic on admission Blood sugar remains stable DVT prophylaxis SCDs CODE STATUS Full Total Time Total Time Spent Total Time Spent (In Minutes): 35 minutes Total Time Includes: Examination of the Patient, Discharge Planning, Medication Reconciliation and Communication With Other Providers Discharge Plan Discharge Items Patient Disposition: Home - Self-Care Reason For Visit: KIDNEY STONE Discharge Diagnosis: Right ureteric stone status post cystoscopy and stent placement Condition on Discharge: Good Activity: Resume your previous activity Non-emergency contact: Primary Care Provider Call non-emergency contact if: you have any medication questions and your symptoms worsen Follow-up/Referrals: Meche Brown MD [Primary Care Provider] - 03/05/19 10:45 am (Your appointment is with Dr. Josesito Orantes. Dr. Brown is not available. Please keep your appointment with the urologist) Diet: Regular Addtl Attending Provider Instructions: Try to drink more fluid Pending Studies at Discharge: No Stand-Alone Forms: My [facility], Smoking Cessation Medications and DC Order Prescriptions: Continued tamsulosin 0.4 mg capsule 0.4 mg PO DAILY Qty: 30 RF: 2 atorvastatin [Lipitor] 10 mg Tablet 10 mg PO HS RF: 0 metoprolol succinate 25 mg Tablet Extended Release 24 Hr 25 mg PO DAILY RF: 0 aspirin [Aspir-Low] 81 mg Tablet,Delayed Release (Dr/Ec) 81 mg PO DAILY RF: 0 Hold Instructions: for surgery on 03/05 No Action phenazopyridine [Pyridium] 200 mg tablet 200 mg PO TID PRN (Reason: pain) Qty: 30 RF: 0 Discharge Orders: Discharge Order (Routine); Ordered 03/01/19 Ordered By: Nia Tamez/Other Patient Handouts: Cystoscopy Admission Data Admit Date/Time: 02/26/19 23:50 Attending Provider: Nia Sheffield Admit Provider: Matheus Sanchez Primary Care Provider: Meche Brown Other Providers: Matheus Sanchez ; Odell Carranza Other Interventions: Discharge Summary Assessment (RN) Last Done: 03/01/19 13:42 DC Date/Time DO NOT enter until pt leaves facility: 03/01/19 14:51
== END 2019-03-01 14:51 | disposition home or self-care (01) | DRG 660 ==
LOC: ED 21:33 → 3N 23:50